=== PATIENT | male | born 1945 ===

== ENCOUNTER 2017-09-29 07:52 | Day surgery (SDC) | payer MEDICARE, SELFPAY ==
[2017-09-28 11:01] LABS: Hematocrit 19.5 % (37.0-53.0); Hemoglobin 6.4 g/dL (13.5-17.5); Mean Corpuscular HGB 30.5 pg (26.0-34.0); Mean Corpuscular HGB Conc 32.8 g/dL (31.5-36.5); Mean Corpuscular Volume 93 fL (80-100); Mean Platelet Volume 10.4 fL (9.1-12.4); NRBC ABSOLUTE 0.36 K/mm3 (0.00-0.02); NRBC Auto 9.9 /100 WBC (0.0-0.2); Platelet Count 61 K/mm3 (150-400); RDW Standard Deviation 53.1 fL (35.1-46.3); White Blood Cell Count 3.65 K/mm3 (4.00-11.30)
[2017-09-28 11:20] LABS: Alanine Aminotransfer (ALT/SGP 21 U/L (12-78); Albumin, Blood 3.5 g/dL (3.4-5.0); Albumin/Globulin Ratio 0.9 (0.8-1.8); Alk Phos 893 U/L (50-136); Anion Gap 8 mmol/L (6-16); Aspartate Aminotrans (AST/SGOT 62 U/L (12-37); Bilirubin, Total 0.9 mg/dL (0.1-1.0); Blood Urea Nitrogen 21 mg/dL (8-24); Bun/Creatinine Ratio 19.4 (12.0-20.0); CO2, Blood 25 mmol/L (21-32); Calcium, Blood 7.8 mg/dL (8.5-10.1); Chloride, Blood 104 mmol/L (98-108); Creatinine, Blood 1.08 mg/dL (0.60-1.20); Globulin, Blood 3.9 g/dL (2.2-4.0); Glomerular Filtration Rate >60 (60-); Glucose, Blood 128 mg/dL (70-99); Sodium, Blood 137 mmol/L (136-145); Total Protein, Blood 7.4 g/dL (6.4-8.2)
[2017-09-28 12:30] LABS: BAND PERCENT MAN 3 % (0-8); BASOPHILS ABSOLUTE MAN 0.03 K/mm3 (0.00-0.23); BASOPHILS PERCENT MAN 1 % (0-2); EOSINOPHILS ABSOLUTE MAN 0.14 K/mm3 (0.00-0.68); EOSINOPHILS PERCENT MAN 4 % (0-6); LYMPHOCYTES ABSOLUTE MAN 0.51 K/mm3 (0.84-5.20); LYMPHOCYTES PERCENT MAN 14 % (21-46); MONOCYTES ABSOLUTE MAN 0.18 K/mm3 (0.16-1.47); MONOCYTES PERCENT MAN 5 % (4-13); NEUTROPHILS ABSOLUTE MAN 2.77 K/mm3 (1.96-9.15); SEG NEUTROPHILS PERCENT MAN 73 % (41-73); TOTAL CELLS COUNTED 100
[~2017-09-29 07:52] MED LIST: ACET500 PO; BICA50 PO; Bactrim Ds Tab1 EACH PO; CIPR500 PO; HYDR1TAB94 PO; LUPRON; OMEPRAZOLE MAGN20 MG PO; Pyridium200 MG PO; SENN187 PO; TAMS.4ER PO; XGEVA PO; XGEVA120 MG/1.7 SC; ZOLP5 PO
[2017-09-29] MEDS ORDERED: ASCO500 (09:05)
[2017-09-29] MEDS ORDERED: VITAMIN D35000 UNIT PO (09:06)
[2017-09-29] MEDS ORDERED: OCUVITE LUTEIN1 EACH PO (09:06)
[2017-09-29] MEDS ORDERED: CALCIUM-MAGNES1 EAC2 PO (09:07)
[2017-09-29] MEDS ORDERED: NAPR220 PO (09:07)
[2017-09-29] MEDS ORDERED: ANTACID200 MG PO (09:08)
== END 2017-09-29 13:15 | disposition home or self-care (01) ==
LOC: LAB 07:52 → ATC 07:52 → EDSTATUS 09-22 15:30 → LAB FUT 09-22 15:30
PROVIDERS: Internal Medicine Hematology & Oncology
DX: C61 Malignant neoplasm of prostate (principal); C79.51 Secondary malignant neoplasm of bone; D64.81 Anemia due to antineoplastic chemotherapy; D69.59 Other secondary thrombocytopenia; K92.1 Melena; E83.51 Hypocalcemia
CPT/HCPCS: 36415; 36430; 80053; 82330; 83970; 84100; 84153; 85025; 86850; 86900; 86901; 86923; J7030; P9016

== ENCOUNTER 2017-10-01 07:54 | Day surgery (SDC) | payer MEDICARE, SELFPAY ==
[~2017-10-01] VITALS: Ht 172.7 cm; Wt 83.9 kg
[~2017-10-01 07:54] MED LIST changes: +ANTACID200 MG PO; +ASCO500; +CALCIUM-MAGNES1 EAC2 PO; +NAPR220 PO; +OCUVITE LUTEIN1 EACH PO; +VITAMIN D35000 UNIT PO
== END 2017-10-01 22:43 | disposition home or self-care (01) ==
LOC: ORSCMMR 07:54
PROVIDERS: Surgery
PROC: 0DJD8ZZ Inspection of Lower Intestinal Tract, Via Natural or Artificial Opening Endoscopic (ICD-10-PCS; principal; 2017-10-01 09:45)
PROC: 0DJ08ZZ Inspection of Upper Intestinal Tract, Via Natural or Artificial Opening Endoscopic (ICD-10-PCS; principal; 2017-10-01 09:45)
DX: K92.1 Melena (principal); K62.7 Radiation proctitis; D64.81 Anemia due to antineoplastic chemotherapy; G47.30 Sleep apnea, unspecified; Z87.891 Personal history of nicotine dependence; Z86.010 Personal history of colon polyps; Z79.899 Other long term (current) drug therapy
CPT/HCPCS: J7120

== ENCOUNTER 2017-10-07 13:08 | Day surgery (SDC) | payer MEDICARE, SELFPAY | END 2017-10-08 09:47 | disposition home or self-care (01) | LOC: ATC 13:08 | PROC: 30233N1 Transfusion of Nonautologous Red Blood Cells into Peripheral Vein, Percutaneous Approach (ICD-10-PCS; principal; 2017-10-07) | DX: D64.81 Anemia due to antineoplastic chemotherapy (principal); C61 Malignant neoplasm of prostate | CPT/HCPCS: 36430; 86850; 86900; 86901; 86923; J7030; P9016 ==

== ENCOUNTER 2017-10-22 07:13 | Day surgery (SDC) | payer MEDICARE ==
[2017-10-19 11:45] LABS: Mean Corpuscular HGB 30.1 pg (26.0-34.0); Mean Corpuscular HGB Conc 33.3 g/dL (31.5-36.5); Mean Corpuscular Volume 90 fL (80-100); Mean Platelet Volume 12.4 fL (9.1-12.4); NRBC ABSOLUTE 0.52 K/mm3 (0.00-0.02); NRBC Auto 5.2 /100 WBC (0.0-0.2); RDW Standard Deviation 52.3 fL (35.1-46.3); Red Blood Cell Count 2.66 M/mm3 (4.30-5.90); White Blood Cell Count 9.93 K/mm3 (4.00-11.30)
[2017-10-19 11:50] LABS: Platelet Count 24 K/mm3 (150-400)
[2017-10-19 11:51] LABS: Alanine Aminotransfer (ALT/SGP 20 U/L (12-78); Albumin, Blood 3.5 g/dL (3.4-5.0); Albumin/Globulin Ratio 1.1 (0.8-1.8); Anion Gap 10 mmol/L (6-16); Aspartate Aminotrans (AST/SGOT 43 U/L (12-37); Bilirubin, Total 0.7 mg/dL (0.1-1.0); Blood Urea Nitrogen 19 mg/dL (8-24); Bun/Creatinine Ratio 19.2 (12.0-20.0); CO2, Blood 23 mmol/L (21-32); Calcium, Blood 8.2 mg/dL (8.5-10.1); Chloride, Blood 105 mmol/L (98-108); Creatinine, Blood 0.99 mg/dL (0.60-1.20); Globulin, Blood 3.3 g/dL (2.2-4.0); Glomerular Filtration Rate >60 (60-); Glucose, Blood 207 mg/dL (70-99); Sodium, Blood 138 mmol/L (136-145); Total Protein, Blood 6.8 g/dL (6.4-8.2)
[2017-10-19 12:10] LABS: BAND PERCENT MAN 4 % (0-8); BASOPHILS PERCENT MAN 0 % (0-2); EOSINOPHILS ABSOLUTE MAN 0.09 K/mm3 (0.00-0.68); EOSINOPHILS PERCENT MAN 1 % (0-6); LYMPHOCYTES % ATYPICAL MANUAL 2 % (0-0); LYMPHOCYTES ABSOLUTE MAN 0.99 K/mm3 (0.84-5.20); LYMPHOCYTES PERCENT MAN 8 % (21-46); METAMYELOCYTE ABSOLUTE MAN 0.49 K/mm3 (0.00-0.00); METAMYELOCYTE PERCENT MAN 5 % (0-0); MONOCYTES ABSOLUTE MAN 1.29 K/mm3 (0.16-1.47); MONOCYTES PERCENT MAN 13 % (4-13); MYELOCYTE ABSOLUTE MAN 0.19 K/mm3 (0.00-0.00); MYELOCYTE PERCENT MAN 2 % (0-0); NEUTROPHILS ABSOLUTE MAN 6.65 K/mm3 (1.96-9.15); SEG NEUTROPHILS PERCENT MAN 63 % (41-73); TOTAL CELLS COUNTED 100
[2017-10-19 12:11] LABS: OTHER CELL PERCENT MAN 2 % (0-0)
[2017-10-19 12:20] LABS: Alk Phos 1116 U/L (50-136)
== END 2017-10-22 17:46 | disposition home or self-care (01) ==
LOC: ATC 07:13
PROVIDERS: Internal Medicine Hematology & Oncology
DX: C61 Malignant neoplasm of prostate (principal); C79.51 Secondary malignant neoplasm of bone; D69.59 Other secondary thrombocytopenia; D64.81 Anemia due to antineoplastic chemotherapy
CPT/HCPCS: 36415; 36430; 80053; 85025; 86850; 86900; 86901; 86923; J7030; P9016

== ENCOUNTER 2017-11-10 00:21 | Day surgery (SDC) | payer MEDICARE ==
[2017-11-09 11:45] LABS: Hematocrit 23.5 % (37.0-53.0); Hemoglobin 7.4 g/dL (13.5-17.5); Mean Corpuscular HGB 30.3 pg (26.0-34.0); Mean Corpuscular HGB Conc 31.5 g/dL (31.5-36.5); Mean Corpuscular Volume 96 fL (80-100); Mean Platelet Volume 11.3 fL (9.1-12.4); NRBC ABSOLUTE 1.84 K/mm3 (0.00-0.02); RDW Standard Deviation 62.9 fL (35.1-46.3); Red Blood Cell Count 2.44 M/mm3 (4.30-5.90); White Blood Cell Count 8.01 K/mm3 (4.00-11.30)
[2017-11-09 11:55] LABS: Platelet Count 35 K/mm3 (150-400)
[2017-11-09 12:44] LABS: BAND PERCENT MAN 1 % (0-8); BASOPHILS ABSOLUTE MAN 0.08 K/mm3 (0.00-0.23); BASOPHILS PERCENT MAN 1 % (0-2); EOSINOPHILS ABSOLUTE MAN 0.48 K/mm3 (0.00-0.68); EOSINOPHILS PERCENT MAN 6 % (0-6); LYMPHOCYTES % ATYPICAL MANUAL 2 % (0-0); LYMPHOCYTES PERCENT MAN 18 % (21-46); METAMYELOCYTE ABSOLUTE MAN 0.48 K/mm3 (0.00-0.00); METAMYELOCYTE PERCENT MAN 6 % (0-0); MONOCYTES ABSOLUTE MAN 0.48 K/mm3 (0.16-1.47); MONOCYTES PERCENT MAN 6 % (4-13); MYELOCYTE ABSOLUTE MAN 0.16 K/mm3 (0.00-0.00); MYELOCYTE PERCENT MAN 2 % (0-0); NEUTROPHILS ABSOLUTE MAN 4.72 K/mm3 (1.96-9.15); SEG NEUTROPHILS PERCENT MAN 58 % (41-73); TOTAL CELLS COUNTED 100
== END 2017-11-10 17:31 | disposition home or self-care (01) ==
LOC: LAB 00:21 → ATC 00:21
PROVIDERS: Internal Medicine Hematology & Oncology
DX: D64.81 Anemia due to antineoplastic chemotherapy (principal); C61 Malignant neoplasm of prostate; C79.51 Secondary malignant neoplasm of bone; D69.59 Other secondary thrombocytopenia; K92.2 Gastrointestinal hemorrhage, unspecified
CPT/HCPCS: 36415; 36430; 85025; 86850; 86900; 86901; 86923; J7030; P9016

== ENCOUNTER 2017-11-24 10:36 | Day surgery (SDC) | payer MEDICARE ==
[2017-11-23 11:32] LABS: Hematocrit 20.4 % (37.0-53.0); Hemoglobin 6.7 g/dL (13.5-17.5); Mean Corpuscular HGB 31.2 pg (26.0-34.0); Mean Corpuscular HGB Conc 32.8 g/dL (31.5-36.5); Mean Corpuscular Volume 95 fL (80-100); Mean Platelet Volume 11.7 fL (9.1-12.4); NRBC Auto 8.4 /100 WBC (0.0-0.2); RDW Coefficient Variation 17.2 % (11.7-14.2); RDW Standard Deviation 58.4 fL (35.1-46.3); Red Blood Cell Count 2.15 M/mm3 (4.30-5.90); White Blood Cell Count 22.71 K/mm3 (4.00-11.30)
[2017-11-23 11:41] LABS: Platelet Count 17 K/mm3 (150-400)
[2017-11-23 12:27] LABS: BAND PERCENT MAN 6 % (0-8); BASOPHILS ABSOLUTE MAN 0.22 K/mm3 (0.00-0.23); BASOPHILS PERCENT MAN 1 % (0-2); EOSINOPHILS ABSOLUTE MAN 0.45 K/mm3 (0.00-0.68); EOSINOPHILS PERCENT MAN 2 % (0-6); LYMPHOCYTES ABSOLUTE MAN 2.95 K/mm3 (0.84-5.20); LYMPHOCYTES PERCENT MAN 13 % (21-46); METAMYELOCYTE ABSOLUTE MAN 0.45 K/mm3 (0.00-0.00); METAMYELOCYTE PERCENT MAN 2 % (0-0); MONOCYTES ABSOLUTE MAN 1.13 K/mm3 (0.16-1.47); MONOCYTES PERCENT MAN 5 % (4-13); MYELOCYTE ABSOLUTE MAN 0.68 K/mm3 (0.00-0.00); MYELOCYTE PERCENT MAN 3 % (0-0); NEUTROPHILS ABSOLUTE MAN 16.57 K/mm3 (1.96-9.15); PROMYELOCYTE ABSOLUTE MAN 0.22 K/mm3 (0.00-0.00); PROMYELOCYTE PERCENT MAN 1 % (0-0); SEG NEUTROPHILS PERCENT MAN 67 % (41-73); TOTAL CELLS COUNTED 100
== END 2017-11-24 18:36 | disposition home or self-care (01) ==
LOC: ATC 10:36
PROVIDERS: Internal Medicine Hematology & Oncology
DX: D64.81 Anemia due to antineoplastic chemotherapy (principal); C61 Malignant neoplasm of prostate; C79.51 Secondary malignant neoplasm of bone
CPT/HCPCS: 36415; 36430; 85025; 86850; 86900; 86901; 86923; 96374; J1940; J7030; P9016; P9035

== ENCOUNTER 2017-12-01 07:07 | Day surgery (SDC) | payer MEDICARE ==
[2017-11-30 12:13] LABS: Hemoglobin 7.2 g/dL (13.5-17.5); Mean Corpuscular HGB 30.8 pg (26.0-34.0); Mean Corpuscular HGB Conc 31.3 g/dL (31.5-36.5); NRBC ABSOLUTE 3.03 K/mm3 (0.00-0.02); NRBC Auto 15.8 /100 WBC (0.0-0.2); RDW Coefficient Variation 19.2 % (11.7-14.2); RDW Standard Deviation 63.3 fL (35.1-46.3); Red Blood Cell Count 2.34 M/mm3 (4.30-5.90); White Blood Cell Count 19.17 K/mm3 (4.00-11.30)
[2017-11-30 12:15] LABS: Mean Corpuscular Volume 98 fL (80-100)
[2017-11-30 12:18] LABS: Platelet Count 10 K/mm3 (150-400)
[2017-11-30 12:45] LABS: BAND PERCENT MAN 10 % (0-8); BASOPHILS ABSOLUTE MAN 0.38 K/mm3 (0.00-0.23); BASOPHILS PERCENT MAN 2 % (0-2); EOSINOPHILS ABSOLUTE MAN 0.38 K/mm3 (0.00-0.68); EOSINOPHILS PERCENT MAN 2 % (0-6); LYMPHOCYTES % ATYPICAL MANUAL 2 % (0-0); LYMPHOCYTES PERCENT MAN 10 % (21-46); METAMYELOCYTE ABSOLUTE MAN 0.76 K/mm3 (0.00-0.00); METAMYELOCYTE PERCENT MAN 4 % (0-0); MONOCYTES ABSOLUTE MAN 0.95 K/mm3 (0.16-1.47); MONOCYTES PERCENT MAN 5 % (4-13); MYELOCYTE ABSOLUTE MAN 1.53 K/mm3 (0.00-0.00); MYELOCYTE PERCENT MAN 8 % (0-0); NEUTROPHILS ABSOLUTE MAN 12.65 K/mm3 (1.96-9.15); PROMYELOCYTE ABSOLUTE MAN 0.19 K/mm3 (0.00-0.00); PROMYELOCYTE PERCENT MAN 1 % (0-0); SEG NEUTROPHILS PERCENT MAN 56 % (41-73); TOTAL CELLS COUNTED 100
== END 2017-12-01 15:30 | disposition home or self-care (01) ==
LOC: ATC 07:07 → LAB 07:07 → ATC 15:30
PROVIDERS: Internal Medicine Hematology & Oncology
DX: D64.81 Anemia due to antineoplastic chemotherapy (principal); C61 Malignant neoplasm of prostate; C79.51 Secondary malignant neoplasm of bone
CPT/HCPCS: 36415; 36430; 85025; 86850; 86900; 86901; 86923; 96374; J1940; J7030; P9016; P9035

== ENCOUNTER 2017-12-15 07:23 | Day surgery (SDC) | payer MEDICARE ==
[2017-12-14 11:41] LABS: Hematocrit 18.8 % (37.0-53.0); Mean Corpuscular HGB 30.9 pg (26.0-34.0); Mean Corpuscular HGB Conc 31.9 g/dL (31.5-36.5); Mean Corpuscular Volume 97 fL (80-100); NRBC Auto 12.2 /100 WBC (0.0-0.2); RDW Coefficient Variation 17.5 % (11.7-14.2); RDW Standard Deviation 59.5 fL (35.1-46.3); Red Blood Cell Count 1.94 M/mm3 (4.30-5.90); White Blood Cell Count 31.13 K/mm3 (4.00-11.30)
[2017-12-14 11:50] LABS: Platelet Count 26 K/mm3 (150-400)
[2017-12-14 11:51] LABS: Alanine Aminotransfer (ALT/SGP 25 U/L (12-78); Albumin, Blood 3.3 g/dL (3.4-5.0); Albumin/Globulin Ratio 1.1 (0.8-1.8); Alk Phos 802 U/L (50-136); Anion Gap 8 mmol/L (6-16); Aspartate Aminotrans (AST/SGOT 48 U/L (12-37); Bilirubin, Total 0.8 mg/dL (0.1-1.0); Blood Urea Nitrogen 14 mg/dL (8-24); Bun/Creatinine Ratio 16.1 (12.0-20.0); CO2, Blood 24 mmol/L (21-32); Calcium, Blood 8.3 mg/dL (8.5-10.1); Chloride, Blood 106 mmol/L (98-108); Creatinine, Blood 0.87 mg/dL (0.60-1.20); Globulin, Blood 3.1 g/dL (2.2-4.0); Glomerular Filtration Rate >60 (60-); Glucose, Blood 129 mg/dL (70-99); Potassium, Blood 3.9 mmol/L (3.5-5.5); Sodium, Blood 138 mmol/L (136-145); Total Protein, Blood 6.4 g/dL (6.4-8.2)
[2017-12-14 12:52] LABS: BAND PERCENT MAN 7 % (0-8); BASOPHILS PERCENT MAN 0 % (0-2); EOSINOPHILS PERCENT MAN 0 % (0-6); LYMPHOCYTES PERCENT MAN 9 % (21-46); METAMYELOCYTE ABSOLUTE MAN 0.31 K/mm3 (0.00-0.00); METAMYELOCYTE PERCENT MAN 1 % (0-0); MONOCYTES ABSOLUTE MAN 3.42 K/mm3 (0.16-1.47); MONOCYTES PERCENT MAN 11 % (4-13); MYELOCYTE ABSOLUTE MAN 0.93 K/mm3 (0.00-0.00); MYELOCYTE PERCENT MAN 3 % (0-0); NEUTROPHILS ABSOLUTE MAN 23.65 K/mm3 (1.96-9.15); SEG NEUTROPHILS PERCENT MAN 69 % (41-73); TOTAL CELLS COUNTED 100
== END 2017-12-15 11:58 | disposition home or self-care (01) ==
LOC: ATC 07:23 → LAB 07:23 → EDSTATUS 07:30 → ATC 11:58
PROVIDERS: Internal Medicine Hematology & Oncology
DX: C61 Malignant neoplasm of prostate (principal); D64.81 Anemia due to antineoplastic chemotherapy; C79.51 Secondary malignant neoplasm of bone; D69.59 Other secondary thrombocytopenia
CPT/HCPCS: 36415; 36430; 80053; 84153; 85025; 86850; 86900; 86901; 86923; J7030; P9016

== ENCOUNTER 2017-12-29 07:10 | Day surgery (SDC) | payer MEDICARE ==
[2017-12-28 11:26] LABS: Hematocrit 22.6 % (37.0-53.0); Hemoglobin 7.1 g/dL (13.5-17.5); Mean Corpuscular HGB 31.4 pg (26.0-34.0); Mean Corpuscular HGB Conc 31.4 g/dL (31.5-36.5); Mean Platelet Volume 10.1 fL (9.1-12.4); NRBC ABSOLUTE 2.24 K/mm3 (0.00-0.02); RDW Coefficient Variation 19.3 % (11.7-14.2); RDW Standard Deviation 65.4 fL (35.1-46.3); Red Blood Cell Count 2.26 M/mm3 (4.30-5.90); White Blood Cell Count 16.04 K/mm3 (4.00-11.30)
[2017-12-28 11:37] LABS: Mean Corpuscular Volume 100 fL (80-100)
[2017-12-28 11:38] LABS: Platelet Count 24 K/mm3 (150-400)
[2017-12-28 11:43] LABS: Alanine Aminotransfer (ALT/SGP 27 U/L (12-78); Albumin, Blood 3.5 g/dL (3.4-5.0); Albumin/Globulin Ratio 1.1 (0.8-1.8); Alk Phos 679 U/L (50-136); Anion Gap 9 mmol/L (6-16); Aspartate Aminotrans (AST/SGOT 49 U/L (12-37); Bilirubin, Total 0.9 mg/dL (0.1-1.0); Blood Urea Nitrogen 17 mg/dL (8-24); Bun/Creatinine Ratio 20.8 (12.0-20.0); CO2, Blood 26 mmol/L (21-32); Calcium, Blood 8.8 mg/dL (8.5-10.1); Chloride, Blood 108 mmol/L (98-108); Creatinine, Blood 0.82 mg/dL (0.60-1.20); Globulin, Blood 3.2 g/dL (2.2-4.0); Glomerular Filtration Rate >60 (60-); Glucose, Blood 128 mg/dL (70-99); Potassium, Blood 3.8 mmol/L (3.5-5.5); Sodium, Blood 143 mmol/L (136-145); Total Protein, Blood 6.7 g/dL (6.4-8.2)
[2017-12-28 11:46] LABS: BAND PERCENT MAN 14 % (0-8); BASOPHILS PERCENT MAN 0 % (0-2); EOSINOPHILS ABSOLUTE MAN 0.16 K/mm3 (0.00-0.68); EOSINOPHILS PERCENT MAN 1 % (0-6); LYMPHOCYTES ABSOLUTE MAN 1.44 K/mm3 (0.84-5.20); LYMPHOCYTES PERCENT MAN 9 % (21-46); METAMYELOCYTE PERCENT MAN 5 % (0-0); MONOCYTES ABSOLUTE MAN 1.12 K/mm3 (0.16-1.47); MONOCYTES PERCENT MAN 7 % (4-13); MYELOCYTE ABSOLUTE MAN 0.96 K/mm3 (0.00-0.00); MYELOCYTE PERCENT MAN 6 % (0-0); NEUTROPHILS ABSOLUTE MAN 11.54 K/mm3 (1.96-9.15); SEG NEUTROPHILS PERCENT MAN 58 % (41-73); TOTAL CELLS COUNTED 100
== END 2017-12-29 11:23 | disposition home or self-care (01) ==
LOC: ATC 07:10
PROVIDERS: Internal Medicine Hematology & Oncology
DX: C61 Malignant neoplasm of prostate (principal); C79.51 Secondary malignant neoplasm of bone; D64.81 Anemia due to antineoplastic chemotherapy; D69.59 Other secondary thrombocytopenia
CPT/HCPCS: 36415; 36430; 80053; 84153; 85025; 86850; 86900; 86901; 86923; J7030; P9016

== ENCOUNTER 2018-01-21 00:30 | Day surgery (SDC) | payer MEDICARE ==
[2018-01-18 11:45] LABS: Hematocrit 23.2 % (37.0-53.0); Hemoglobin 7.2 g/dL (13.5-17.5); Mean Corpuscular Volume 103 fL (80-100); Mean Platelet Volume 10.9 fL (9.1-12.4); NRBC ABSOLUTE 2.59 K/mm3 (0.00-0.02); NRBC Auto 13.8 /100 WBC (0.0-0.2); RDW Coefficient Variation 20.7 % (11.7-14.2); RDW Standard Deviation 72.1 fL (35.1-46.3); Red Blood Cell Count 2.25 M/mm3 (4.30-5.90); White Blood Cell Count 18.72 K/mm3 (4.00-11.30)
[2018-01-18 11:52] LABS: Platelet Count 42 K/mm3 (150-400)
[2018-01-18 12:23] LABS: BAND PERCENT MAN 10 % (0-8); BASOPHILS ABSOLUTE MAN 0.18 K/mm3 (0.00-0.23); BASOPHILS PERCENT MAN 1 % (0-2); EOSINOPHILS ABSOLUTE MAN 0.37 K/mm3 (0.00-0.68); EOSINOPHILS PERCENT MAN 2 % (0-6); LYMPHOCYTES ABSOLUTE MAN 2.62 K/mm3 (0.84-5.20); LYMPHOCYTES PERCENT MAN 14 % (21-46); METAMYELOCYTE ABSOLUTE MAN 0.37 K/mm3 (0.00-0.00); METAMYELOCYTE PERCENT MAN 2 % (0-0); MONOCYTES ABSOLUTE MAN 1.12 K/mm3 (0.16-1.47); MONOCYTES PERCENT MAN 6 % (4-13); MYELOCYTE ABSOLUTE MAN 0.74 K/mm3 (0.00-0.00); MYELOCYTE PERCENT MAN 4 % (0-0); NEUTROPHILS ABSOLUTE MAN 13.29 K/mm3 (1.96-9.15); SEG NEUTROPHILS PERCENT MAN 61 % (41-73); TOTAL CELLS COUNTED 100
[2018-01-18 12:43] LABS: Alanine Aminotransfer (ALT/SGP 24 U/L (12-78); Albumin, Blood 3.8 g/dL (3.4-5.0); Albumin/Globulin Ratio 1.3 (0.8-1.8); Alk Phos 473 U/L (50-136); Anion Gap 10 mmol/L (6-16); Aspartate Aminotrans (AST/SGOT 47 U/L (12-37); Bilirubin, Total 0.9 mg/dL (0.1-1.0); Blood Urea Nitrogen 20 mg/dL (8-24); Bun/Creatinine Ratio 23.4 (12.0-20.0); CO2, Blood 23 mmol/L (21-32); Calcium, Blood 8.3 mg/dL (8.5-10.1); Chloride, Blood 109 mmol/L (98-108); Creatinine, Blood 0.86 mg/dL (0.60-1.20); Glomerular Filtration Rate >60 (60-); Glucose, Blood 110 mg/dL (70-99); Potassium, Blood 4.3 mmol/L (3.5-5.5); Sodium, Blood 142 mmol/L (136-145); Total Protein, Blood 6.8 g/dL (6.4-8.2)
== END 2018-01-21 11:35 | disposition home or self-care (01) ==
LOC: ATC 00:30 → LAB 00:30 → ATC 11:20 → EDSTATUS 11-15 11:20 → LAB SO 11-15 11:20 → ATC 11-15 11:20
PROVIDERS: Internal Medicine Hematology & Oncology
DX: C61 Malignant neoplasm of prostate (principal); D64.81 Anemia due to antineoplastic chemotherapy; C79.51 Secondary malignant neoplasm of bone
CPT/HCPCS: 36415; 36430; 80053; 84153; 85025; 86850; 86900; 86901; 86923; J7030; P9016

== ENCOUNTER 2018-03-30 11:07 | Day surgery (SDC) | payer MEDICARE ==
[2018-03-29 11:24] LABS: BASOPHILS ABSOLUTE AUTO 0.01 K/mm3 (0.00-0.23); BASOPHILS PERCENT AUTO 1 % (0-2); EOSINOPHILS PERCENT AUTO 0 % (0-6); Hematocrit 22.5 % (37.0-53.0); Hemoglobin 7.5 g/dL (13.5-17.5); IMMATURE GRAN ABSOLUTE AUTO 0.01 K/mm3 (0.00-0.10); IMMATURE GRAN PERCENT AUTO 1 % (0-1); LYMPHOCYTES ABSOLUTE AUTO 0.33 K/mm3 (0.84-5.20); LYMPHOCYTES PERCENT AUTO 24 % (21-46); MONOCYTES PERCENT AUTO 7 % (4-13); Mean Corpuscular HGB 34.4 pg (26.0-34.0); Mean Corpuscular HGB Conc 33.3 g/dL (31.5-36.5); Mean Corpuscular Volume 103 fL (80-100); Mean Platelet Volume 10.3 fL (9.1-12.4); NEUTROPHILS ABSOLUTE AUTO 0.91 K/mm3 (1.96-9.15); NEUTROPHILS PERCENT AUTO 67 % (41-73); Platelet Count 106 K/mm3 (150-400); RDW Coefficient Variation 21.1 % (11.7-14.2); RDW Standard Deviation 78.6 fL (35.1-46.3); Red Blood Cell Count 2.18 M/mm3 (4.30-5.90); White Blood Cell Count 1.36 K/mm3 (4.00-11.30)
== END 2018-03-30 18:30 | disposition home or self-care (01) ==
LOC: ATC 11:07 → LAB 11:07 → EDSTATUS 11:09 → ATC 18:30
PROVIDERS: Internal Medicine Hematology & Oncology
DX: D64.81 Anemia due to antineoplastic chemotherapy (principal); C61 Malignant neoplasm of prostate; C79.51 Secondary malignant neoplasm of bone
CPT/HCPCS: 36415; 36430; 85025; 86850; 86900; 86901; 86923; J7030; P9016

== ENCOUNTER 2018-04-18 13:14 | Day surgery (SDC) | payer MEDICARE, OTHER ==
[~2018-04-18] VITALS: Ht 172.7 cm; Wt 79.1 kg
[2018-04-18] MEDS ORDERED: TAXOTERE20 MG/1 ML (14:01)
[2018-04-18] MEDS ORDERED: Carboplati10 MG/1 ML (14:01)
== END 2018-04-18 17:50 | disposition home or self-care (01) ==
LOC: ORSCSDS 13:14
PROVIDERS: Surgery
PROC: 05H633Z Insertion of Infusion Device into Left Subclavian Vein, Percutaneous Approach (ICD-10-PCS; principal; 2018-04-18 14:45)
PROC: B5171ZA Fluoroscopy of Left Subclavian Vein using Low Osmolar Contrast, Guidance (ICD-10-PCS; principal; 2018-04-18 14:45)
DX: C61 Malignant neoplasm of prostate (principal); C79.51 Secondary malignant neoplasm of bone; I25.10 Atherosclerotic heart disease of native coronary artery without angina pectoris
CPT/HCPCS: 77001; C1788; J0690; J1642; J2250; J3010; J7120

== ENCOUNTER 2018-07-08 00:08 | Day surgery (SDC) | payer MEDICARE ==
[~2018-07-08 00:08] MED LIST changes: +Carboplati10 MG/1 ML; +TAXOTERE20 MG/1 ML
== END 2018-07-08 22:47 | disposition home or self-care (01) ==
LOC: ATC 00:08
DX: D64.81 Anemia due to antineoplastic chemotherapy (principal); C61 Malignant neoplasm of prostate; C79.31 Secondary malignant neoplasm of brain; C79.51 Secondary malignant neoplasm of bone
CPT/HCPCS: 86850; 86900; 86901; 86923; J1642; J7050; P9016

== ENCOUNTER 2018-08-16 15:40 | Inpatient (IN) | payer MEDICARE, OTHER ==
[~2018-08-16] VITALS: Ht 172.7 cm; Wt 78.0 kg
[~2018-08-16 15:40] MED LIST changes: -ASCO500; -BICA50 PO; -CALCIUM-MAGNES1 EAC2 PO; -Carboplati10 MG/1 ML; -LUPRON; -NAPR220 PO; -OCUVITE LUTEIN1 EACH PO; -TAXOTERE20 MG/1 ML; -VITAMIN D35000 UNIT PO; -XGEVA120 MG/1.7 SC
[2018-08-16] MEDS ORDERED: HYDR-86 PO (18:30)
--- NOTE | 2018-08-17 04:09 | NUR ---
ADMISSION: REPORT RECIEVED FROM JORDAN JENKINS. PT TO UNIT AT ABOUT 2320. UPON ASSESSMENT PT IS DROWSY, AWAKENS TO VOICE BUT FALLS BACK ASLEEP QUICKLY. WEAKNESS, TRANSFERED FROM [facility] TO BED WITH SLIDER SHEET. PT'S PORT IS ACCESSED, IV FLUIDS STARTED. UNABLE TO COMPLETE ALL ADMITING CHARTING, PT FALLING ASLEEP IN BETWEEN QUESTIONS. WILL CTM, PT EDUCATED ABOUT CALL LIGHT BED ALARM SET.
--- NOTE | 2018-08-17 04:35 | NUR ---
SUMMARY: SEE ADMISSION NOTES. PT MEDICATED X1 SINCE ADMISSION. PT SLEPT THE REMAINDER OF THE NIGHT, NO CHANGE. VSS, NO CONCERNS AT THIS TIME. BED ALARM ON FOR PT SAFETY, PT USING CALL LIGHT.
[2018-08-17 04:56] LABS: Hematocrit 21.3 % (37.0-53.0); Hemoglobin 6.7 g/dL (13.5-17.5); Mean Corpuscular HGB 33.7 pg (26.0-34.0); Mean Corpuscular HGB Conc 31.5 g/dL (31.5-36.5); Mean Corpuscular Volume 107 fL (80-100); Mean Platelet Volume 9.6 fL (9.1-12.4); NRBC ABSOLUTE 0.05 K/mm3 (0.00-0.02); NRBC Auto 0.7 /100 WBC (0.0-0.2); Platelet Count 143 K/mm3 (150-400); RDW Coefficient Variation 19.9 % (11.7-14.2); RDW Standard Deviation 77.8 fL (35.1-46.3); Red Blood Cell Count 1.99 M/mm3 (4.30-5.90); White Blood Cell Count 7.37 K/mm3 (4.00-11.30)
[2018-08-17 05:18] LABS: Alanine Aminotransfer (ALT/SGP 15 U/L (12-78); Albumin, Blood 2.8 g/dL (3.4-5.0); Albumin/Globulin Ratio 0.8 (0.8-1.8); Alk Phos 230 U/L (50-136); Anion Gap 7 mmol/L (6-16); Aspartate Aminotrans (AST/SGOT 53 U/L (12-37); Bilirubin, Total 0.7 mg/dL (0.1-1.0); Blood Urea Nitrogen 16 mg/dL (8-24); Bun/Creatinine Ratio 17.6 (12.0-20.0); CO2, Blood 27 mmol/L (21-32); Calcium, Blood 7.1 mg/dL (8.5-10.1); Chloride, Blood 103 mmol/L (98-108); Creatinine, Blood 0.91 mg/dL (0.60-1.20); Globulin, Blood 3.5 g/dL (2.2-4.0); Glomerular Filtration Rate >60 (60-); Glucose, Blood 119 mg/dL (70-99); Sodium, Blood 137 mmol/L (136-145); Total Protein, Blood 6.3 g/dL (6.4-8.2)
--- NOTE | 2018-08-17 05:30 | NUR ---
PT HGB 6.[address] LOVE NOTIFIED, SEE NEW ORDER. NO CHANGE IN PT STATUS
[2018-08-17 14:31] LABS: Hematocrit 23.6 % (37.0-53.0); Hemoglobin 7.7 g/dL (13.5-17.5)
[2018-08-17 14:53] LABS: Percent Saturation 29.5 % (20.0-50.0)
--- NOTE | 2018-08-17 16:41 | NUR ---
dnr verified with second RN Glory Ventura RN. verified with patient that dnr is per his request. DNR bracelet applied
--- NOTE | 2018-08-17 17:47 | NUR ---
SUMMARY PATIENT RECEIVING SECOND UNIT OF PRBC'S AT THIS TIME. OOB TO CHAIR X2. PATIENT DECLINED SITTING UP IN CHAIR STATES TOO WEAK AND TIRED.PATIENT REPORTS MINIMAL INCREASE IN HIP PAIN WITH MOVEMENT. NORCO AND FENTANYL PROVIDING GOOD PAIN CONTROL MALKA FLORES RN
[2018-08-17 20:35] LABS: Hematocrit 26.9 % (37.0-53.0); Hemoglobin 8.9 g/dL (13.5-17.5)
[2018-08-18 00:47] LABS: Hematocrit 26.2 % (37.0-53.0); Hemoglobin 8.5 g/dL (13.5-17.5)
[2018-08-18 05:05] LABS: Hematocrit 26.5 % (37.0-53.0); Hemoglobin 8.5 g/dL (13.5-17.5)
[2018-08-18 06:57] LABS: Albumin, Blood 2.5 g/dL (3.4-5.0); Anion Gap 8 mmol/L (6-16); Blood Urea Nitrogen 14 mg/dL (8-24); Bun/Creatinine Ratio 15.6 (12.0-20.0); CO2, Blood 26 mmol/L (21-32); Calcium, Blood 7.5 mg/dL (8.5-10.1); Chloride, Blood 105 mmol/L (98-108); Glomerular Filtration Rate >60 (60-); Glucose, Blood 122 mg/dL (70-99); Phosphorus, Blood 1.9 mg/dL (2.5-4.9); Potassium, Blood 3.3 mmol/L (3.5-5.5); Sodium, Blood 139 mmol/L (136-145)
--- NOTE | 2018-08-18 07:11 | NUR ---
SHIFT SUMMARY PT ADMITTED FOR INTRACTABLE BONE PAIN. HE WAS PAINFUL T/O THE NIGHT, MEDICATED PER EMAR. H&H STABLE THIS MORNING. PT IS A SBA FOR TRANSFERS. HE IS MORE PAINFUL WITH SUDDEN MOVEMENTS. MEDIPORT ACCESSED, RUNNING NS TKO. PT A&O, ABLE TO MAKE NEEDS KNOWN. REPORT PASSED TO ONCOMING SHIFT.
[2018-08-18 07:31] LABS: Stool Occult Blood Guaiac 1 Neg (Neg)
--- NOTE | 2018-08-18 18:06 | NUR ---
SUMMARY PATIENT REPORTS GOOD PAIN CONTROL WITH CURRENT MEDS. PATIENT UP IN ROOM WITH WALKER AND STANDBY ASSIST. PATIENT IS PLANNING FOR DISCHARGE TOMORROW AND TELLS ME HE WILL HAVE ADEQUATE ASISTANCE AT HOME AND FEELS THAT HE WILL BE ABLE TO MANAGE QUITE WELL. MALKA FLORES RN
[2018-08-19 04:47] LABS: BASOPHILS ABSOLUTE AUTO 0.04 K/mm3 (0.00-0.23); BASOPHILS PERCENT AUTO 1 % (0-2); EOSINOPHILS ABSOLUTE AUTO 0.05 K/mm3 (0.00-0.68); EOSINOPHILS PERCENT AUTO 1 % (0-6); Hemoglobin 9.2 g/dL (13.5-17.5); IMMATURE GRAN ABSOLUTE AUTO 0.17 K/mm3 (0.00-0.10); IMMATURE GRAN PERCENT AUTO 3 % (0-1); LYMPHOCYTES ABSOLUTE AUTO 0.65 K/mm3 (0.84-5.20); LYMPHOCYTES PERCENT AUTO 10 % (21-46); MONOCYTES ABSOLUTE AUTO 0.63 K/mm3 (0.16-1.47); MONOCYTES PERCENT AUTO 10 % (4-13); Mean Corpuscular HGB 31.4 pg (26.0-34.0); Mean Corpuscular HGB Conc 31.7 g/dL (31.5-36.5); Mean Platelet Volume 8.7 fL (9.1-12.4); NEUTROPHILS PERCENT AUTO 77 % (41-73); NRBC ABSOLUTE 0.03 K/mm3 (0.00-0.02); NRBC Auto 0.5 /100 WBC (0.0-0.2); Platelet Count 175 K/mm3 (150-400); RDW Coefficient Variation 21.2 % (11.7-14.2); RDW Standard Deviation 76.6 fL (35.1-46.3); Red Blood Cell Count 2.93 M/mm3 (4.30-5.90); White Blood Cell Count 6.54 K/mm3 (4.00-11.30)
[2018-08-19 04:51] LABS: Mean Corpuscular Volume 99 fL (80-100)
[2018-08-19 05:02] LABS: Albumin, Blood 2.8 g/dL (3.4-5.0); Anion Gap 7 mmol/L (6-16); Blood Urea Nitrogen 12 mg/dL (8-24); Bun/Creatinine Ratio 13.2 (12.0-20.0); CO2, Blood 29 mmol/L (21-32); Calcium, Blood 8.1 mg/dL (8.5-10.1); Chloride, Blood 106 mmol/L (98-108); Creatinine, Blood 0.91 mg/dL (0.60-1.20); Glomerular Filtration Rate >60 (60-); Glucose, Blood 100 mg/dL (70-99); Phosphorus, Blood 2.5 mg/dL (2.5-4.9); Potassium, Blood 3.7 mmol/L (3.5-5.5); Sodium, Blood 142 mmol/L (136-145)
--- NOTE | 2018-08-19 06:10 | NUR ---
SHIFT SUMMARY PT REMAINS ON FLOOR FOR INTRACTABLE BONE PAIN R/T PROSTATE CANCER. HE REPORTS WORSENING PAIN DURING THE NIGHT AND SEEMS TO HAVE THE WORST PAIN BETWEEN ABOUT 1900 AND 0200. MEDICATED FOR PAIN W/ PO MEDS PER EMAR, REQUIRED BREAKTHROUGH ONCE. HE HAS BEEN GETTING UP AMBULATING TO THE BR WITH SBA AND FWW. PT IS A&O, ABLE TO MAKE NEEDS KNOWN. WILL CTM UNTIL PASS TO NEXT SHIFT.
[2018-08-19] MEDS ORDERED: DOCU100 PO (09:53)
[2018-08-19] MEDS ORDERED: FENT50TP TOP (09:55)
[2018-08-19] MEDS ORDERED: SENN187 PO (09:56)
[2018-08-19] MEDS ORDERED: PANT40 PO (09:56)
--- NOTE | 2018-08-19 14:21 | NUR ---
DISCHARGE SUMMARY PT A&OX4, VSS, LEFT FLOOR VIA WC WITH [employer] PROSPECTING SUPERVISOR TO GO HOME WITH FRIEND, WITH ALL PERSONAL POSSESSIONS INCLUDING DISCHARGE PACKET AND 1 SCRIPT FOR NORCO & FENT PATCH. DISCHARGE INSTRUCTIONS GIVEN. PT REPORTED UNDERSTANDING THOSE INSTRUCTIONS INCLUDING MEDS FAXED TO [facility], SCRIPT MUST BE HD TO BE FILLED, FU APPT WITH DR CARRILLO ON WEDNESDAY, REFUSAL FOR HOME HEALTH. PT STATED DAUGHTER WILL BE HERE FOR WEEKEND, MANY FRIENDS THAT LIVE NEAR BY AND DOESNT NEED HH, I ENCOURAGED PT TO FU WITH DR CARRILLO/PCP IF CHANGES MIND. LINE DEACCESSED.
== END 2018-08-19 14:05 | disposition home or self-care (01) | DRG 812 ==
LOC: ER 15:40 → SURS 21:17
PROVIDERS: Internal Medicine; ADMIT Internal Medicine
PROC: 30233N1 Transfusion of Nonautologous Red Blood Cells into Peripheral Vein, Percutaneous Approach (ICD-10-PCS; principal; 2018-08-16)
DX: D64.81 Anemia due to antineoplastic chemotherapy (principal); C79.51 Secondary malignant neoplasm of bone; C61 Malignant neoplasm of prostate; Z51.5 Encounter for palliative care; K59.00 Constipation, unspecified; E87.6 Hypokalemia; E83.39 Other disorders of phosphorus metabolism; Z66 Do not resuscitate; Z87.891 Personal history of nicotine dependence; G89.3 Neoplasm related pain (acute) (chronic); Z51.11 Encounter for antineoplastic chemotherapy
CPT/HCPCS: 36415; 36430; 72170; 73552; 73700; 80053; 80069; 82272; 82607; 82728; 82746; 83540; 83550; 85014; 85018; 85025; 85027; 86850; 86900; 86901; 86923; 93971; 96361; 96374; 96376; 97110; 97116; 97162; 97165; 97530; 97535; 99285-25; J1170; J1642; J1650; J1885; J3010; J7030; P9016

== ENCOUNTER 2018-09-08 10:59 | Observation (INO) | payer MEDICARE ==
[~2018-09-08] VITALS: Ht 172.7 cm; Wt 81.7 kg
[~2018-09-08 10:59] MED LIST changes: +DOCU100 PO; +FENT50TP TOP; +HYDR-86 PO; +PANT40 PO
[2018-09-08 12:15] LABS: Hematocrit 29.6 % (37.0-53.0); Hemoglobin 9.4 g/dL (13.5-17.5); Mean Corpuscular HGB 31.4 pg (26.0-34.0); Mean Corpuscular HGB Conc 31.8 g/dL (31.5-36.5); Mean Corpuscular Volume 99 fL (80-100); NRBC ABSOLUTE 0.03 K/mm3 (0.00-0.02); NRBC Auto 0.5 /100 WBC (0.0-0.2); Platelet Count 103 K/mm3 (150-400); RDW Coefficient Variation 20.4 % (11.7-14.2); RDW Standard Deviation 74.5 fL (35.1-46.3); Red Blood Cell Count 2.99 M/mm3 (4.30-5.90); White Blood Cell Count 6.09 K/mm3 (4.00-11.30)
[2018-09-08 12:25] LABS: International Normalized Ratio 1.11; Prothrombin Time Results 11.7 Sec (9.7-11.5)
[2018-09-08 12:37] LABS: BASOPHILS PERCENT MAN 0 % (0-2); EOSINOPHILS ABSOLUTE MAN 0.12 K/mm3 (0.00-0.68); EOSINOPHILS PERCENT MAN 2 % (0-6); LYMPHOCYTES PERCENT MAN 10 % (21-46); METAMYELOCYTE ABSOLUTE MAN 0.06 K/mm3 (0.00-0.00); METAMYELOCYTE PERCENT MAN 1 % (0-0); MONOCYTES PERCENT MAN 10 % (4-13); MYELOCYTE ABSOLUTE MAN 0.12 K/mm3 (0.00-0.00); MYELOCYTE PERCENT MAN 2 % (0-0); NEUTROPHILS ABSOLUTE MAN 4.56 K/mm3 (1.96-9.15); SEG NEUTROPHILS PERCENT MAN 75 % (41-73); TOTAL CELLS COUNTED 100
[2018-09-08 12:45] LABS: Alanine Aminotransfer (ALT/SGP 18 U/L (12-78); Albumin, Blood 3.4 g/dL (3.4-5.0); Albumin/Globulin Ratio 0.9 (0.8-1.8); Alk Phos 521 U/L (50-136); Anion Gap 8 mmol/L (6-16); Aspartate Aminotrans (AST/SGOT 173 U/L (12-37); Bilirubin, Total 0.8 mg/dL (0.1-1.0); Blood Urea Nitrogen 13 mg/dL (8-24); Bun/Creatinine Ratio 13.3 (12.0-20.0); CO2, Blood 26 mmol/L (21-32); Calcium, Blood 8.4 mg/dL (8.5-10.1); Chloride, Blood 100 mmol/L (98-108); Creatinine, Blood 0.98 mg/dL (0.60-1.20); Ethanol (Alcohol), Blood, Med <3 mg/dL; Globulin, Blood 3.7 g/dL (2.2-4.0); Glomerular Filtration Rate >60 (60-); Glucose, Blood 129 mg/dL (70-99); Potassium, Blood 4.1 mmol/L (3.5-5.5); Sodium, Blood 134 mmol/L (136-145); Total Protein, Blood 7.1 g/dL (6.4-8.2)
[2018-09-08] MEDS ORDERED: ZEAXANTHIN100 GM PO (14:07)
[2018-09-08 14:44] LABS: Source, Urine Clean Catch
[2018-09-08 14:47] LABS: Appearance, Urine Clear (Clear); Bilirubin, Urine Neg (Neg); Blood, Urine 3+ (Neg); Color, Urine Yellow (P-Yellow); Glucose Qualitative, Urine Neg (Neg); Ketones, Urine Neg (Neg); Leukocyte Esterase, Urine Neg (Neg); Nitrite, Urine Neg (Neg); Protein, Urine 1+ (Neg); Specific Gravity, Urine 1.015 (1.003-1.022); Urobilinogen, Urine NORM (Normal)
[2018-09-08 14:59] LABS: Bacteria Rare /hpf; Squamous Epithelial Cells Not Seen /hpf (Few); White Blood Cells, Urine 0-2 /hpf (0-5)
[2018-09-08] MEDS ORDERED: **INCOMPLETE MED REC (14:59)
[2018-09-08] MEDS ORDERED: ASCO500 PO (15:16)
[2018-09-08] MEDS ORDERED: OXYC10TA19 PO (15:19)
[2018-09-08] MEDS ORDERED: FENTANYL1 EAC1 TOP (15:22)
[2018-09-08] MEDS ORDERED: PRED10 PO (15:25)
[2018-09-08] MEDS ORDERED: METO10 PO (15:26)
[2018-09-08] MEDS ORDERED: CALCIUM-MAGNES1 EAC2 PO (15:27)
[2018-09-08] MEDS ORDERED: Carboplati10 MG/1 ML (15:29)
[2018-09-08] MEDS ORDERED: VITAMIN D35000 UNIT PO (15:31)
[2018-09-08] MEDS ORDERED: XGEVA120 MG/1.7 SC (15:32)
[2018-09-08] MEDS ORDERED: TAXOTERE20 MG/1 ML (15:33)
[2018-09-08] MEDS ORDERED: LUPRON (15:36)
[2018-09-08] MEDS ORDERED: OCUVITE LUTEIN1 EACH PO (15:37)
[2018-09-08] MEDS ORDERED: NAPR220 PO (15:39)
[2018-09-08] MEDS ORDERED: CASODEX PO (15:40)
[2018-09-08] MEDS ORDERED: IRON PO (15:42)
--- NOTE | 2018-09-08 17:51 | NUR ---
PT ADMITTED PT ADMITTED AT 1720. PT IN STABLE CONDITION WITH VSS. PT ORIENTED TO ROOM. CALL LIGHT IN REACH. WILL CONTINUE TO MONITOR UNTIL TURNOVER IS COMPLETE
--- NOTE | 2018-09-09 04:16 | NUR ---
NAVAL ARCHITECT SPECIALIST SUMMARY PT AAOX3 BUT IS FORGETFUL AT TIMES. HAS BEEN CALLING FOR ASSISTANCE APPROPRIATELY. TREATED FOR NAUSEA X1 WITH ZOFRAN. PT RECIEVING 20 MG OXYCODONE Q4H FOR CHRONIC CANCER PAINS IN HIPS. PT REPORTS THIS IS HIS HOME DOSE. PT ALSO HAS FENTANYL PATCH ON CHEST. PT IS WEAK AND REQUIRES A STANDBY ASSIST WITH AMBULATION BUT MAINLY STANDS AT BEDSIDE TO USE URINAL. VSS, WILL CONTINUE TO MONITOR.
[2018-09-09 05:35] LABS: BASOPHILS ABSOLUTE AUTO 0.02 K/mm3 (0.00-0.23); BASOPHILS PERCENT AUTO 0 % (0-2); EOSINOPHILS ABSOLUTE AUTO 0.12 K/mm3 (0.00-0.68); EOSINOPHILS PERCENT AUTO 2 % (0-6); Hemoglobin 8.5 g/dL (13.5-17.5); IMMATURE GRAN ABSOLUTE AUTO 0.15 K/mm3 (0.00-0.10); IMMATURE GRAN PERCENT AUTO 3 % (0-1); LYMPHOCYTES ABSOLUTE AUTO 0.39 K/mm3 (0.84-5.20); LYMPHOCYTES PERCENT AUTO 7 % (21-46); MONOCYTES ABSOLUTE AUTO 0.47 K/mm3 (0.16-1.47); MONOCYTES PERCENT AUTO 9 % (4-13); Mean Corpuscular HGB 31.4 pg (26.0-34.0); Mean Corpuscular HGB Conc 31.5 g/dL (31.5-36.5); Mean Corpuscular Volume 100 fL (80-100); Mean Platelet Volume 9.9 fL (9.1-12.4); NEUTROPHILS ABSOLUTE AUTO 4.15 K/mm3 (1.96-9.15); NEUTROPHILS PERCENT AUTO 78 % (41-73); NRBC ABSOLUTE 0.02 K/mm3 (0.00-0.02); NRBC Auto 0.4 /100 WBC (0.0-0.2); Platelet Count 102 K/mm3 (150-400); RDW Coefficient Variation 20.2 % (11.7-14.2); RDW Standard Deviation 71.5 fL (35.1-46.3); Red Blood Cell Count 2.71 M/mm3 (4.30-5.90)
[2018-09-09 05:58] LABS: Anion Gap 7 mmol/L (6-16); Blood Urea Nitrogen 12 mg/dL (8-24); Bun/Creatinine Ratio 12.5 (12.0-20.0); CO2, Blood 28 mmol/L (21-32); Calcium, Blood 8.1 mg/dL (8.5-10.1); Chloride, Blood 102 mmol/L (98-108); Creatinine, Blood 0.96 mg/dL (0.60-1.20); Glomerular Filtration Rate >60 (60-); Glucose, Blood 118 mg/dL (70-99); Sodium, Blood 137 mmol/L (136-145)
--- NOTE | 2018-09-09 10:16 | NUR ---
PT MET WITH FAMILY AND CALLED FOR RN TO INFORM DR PRATHER HE IS READY TO DISCHARGE TODAY. SPOKE TO JORDAN CHAIREZ ABOUT PT PLAN TO DC TO HOSPICE AND MOVE TO [place]. JORDAN DUNBAR PLACED A CALL TO PT PCP TO MAKE THESE ARRANGEMENTS. CALLED DR PRATHER AFTER ALL WAS READY, HE IS GOING TO DISCHARGE THE PT HOME, PT REQUESTED 3 DAYS OF PAIN MANAGEMENT MEDS TO GET THROUGH UNTIL HE CAN ESTABLISH WITH A NEW PROVIDER IN [place].
--- NOTE | 2018-09-09 10:22 | NUR ---
Preparing to see patient and family advises they want discharge orders DELMY. Their plan is to take pt to his bank and energy attorney and get his finances in order. [place] [facility] [place] [facility] and the are going to move him to her home tomorrow. And state they need to return to [place] as soon as possible. Reviewed with family the risks of the plan. Advised that he does not have a physician in the area nor is his insurance set up for another state. Suggested they leave wednesday and make plans today with hospice care so there are no delays in care. They remain adamant. Contacted his primary care office who is Doctor Mdeeiros to assist with a plan and see if he will follow patient until hospice intake. The offered plan form Physicians offcie is to contact [facility] for assistance on fincing hospice care. They will also call doctor Youssef. The zainab daughter is also anurse in the [place] area. Advised family to have her contact local hospice service to start process. Advised to have a plan B and contact more than one service. Advised family to stay in contact with Dr Medeiros and Dr. Youssef during transition. Review of pt medications. Will get shot term RX for nause and pain meds to get him through the week. Pt family left pt anxious and in shock and distraught. He can follow conversation but speech is slow. Attempted theraputic expression but he is nauseated and stressed and his phone keeps ringing. Advised family of stressors of transfer and risks. Advised onhow to use [employer] to locate hospitals and urgent cares on route and best route to take for available medical care and cell phone connection. Also spoke with daughter Cheyanne phone number . Gave her our fax number and our hours of hospice needs records this weekend for patient.
[2018-09-09] MEDS ORDERED: AMOCLA500 PO (10:47)
[2018-09-09] MEDS ORDERED: Flonase 0.05% N16 GM INH (10:49)
--- NOTE | 2018-09-09 12:27 | NUR ---
DISCHARGE NOTE- PT WAS GIVEN VERBAL AND WRITTEN DISCHARGE INSTRUCTIONS AND ACKNOWLEDGED UNDERSTANDING OF THEM. PT WAS GIVEN HARD COPY OF NARCOTIC SCRIPT, PHOTO COPY IN THE CHART. PT WAS ESCORTED OUT VIA W/C BY THE RN [facility]. MEDS FAXED TO [facility] PER PT REQUEST. PT FAMILY PRESENT FOR DISCHARGE TEACHING. NO FURTHER QUESTIONS AT THE TIME OF DISCHARGE.
== END 2018-09-09 11:50 | disposition hospice, home (50) ==
LOC: ER 10:59 → MEDS 11:00 → ENPENDDIS 09-09 10:17 → MEDS 09-09 11:50
PROVIDERS: Physician Assistant; ADMIT Internal Medicine
DX: S06.5X9A Traumatic subdural hemorrhage with loss of consciousness of unspecified duration, initial encounter (principal); C61 Malignant neoplasm of prostate; C79.51 Secondary malignant neoplasm of bone; D61.82 Myelophthisis; D63.8 Anemia in other chronic diseases classified elsewhere; J32.9 Chronic sinusitis, unspecified; K59.00 Constipation, unspecified; E87.6 Hypokalemia; E83.39 Other disorders of phosphorus metabolism; K21.9 Gastro-esophageal reflux disease without esophagitis; Z88.8 Allergy status to other drugs, medicaments and biological substances; Z88.2 Allergy status to sulfonamides; Z88.5 Allergy status to narcotic agent; Z79.899 Other long term (current) drug therapy; Z79.52 Long term (current) use of systemic steroids; W19.XXXA Unspecified fall, initial encounter
CPT/HCPCS: 36415; 70450; 80048; 80053; 81001; 85025; 85610; 93005; 93010; 96361; 96374; 96376; 99285-25; G0378; G0480; J2405; J7120